=== PATIENT | female | born 1995 | race Caucasian/White ===

== ENCOUNTER 2016-12-06 18:04 | Emergency (ER) | payer MEDICAID ==
[2016-12-06 18:54] VITALS: BP 133/69
--- NOTE | 2016-12-06 20:34 | ERNOTE ---
Upper Extremity HPI - Narrative Date of Service: 12/06/16 - General Time Seen by Provider: 12/06/16 20:05 Source: patient - Immun/Allergies/Home Medications Immunizations: IMMUNIZATION HX Immunizations Up to Date No History of Influenza Vaccine No Hx Pneumococcal Vaccination No Allergies/Adverse Reactions: Allergies Allergy/AdvReac Type Severity Reaction Status Date / Time azithromycin [From Zithromax] AdvReac Verified 09/20/16 18:15 Home Medications: HOME MEDICATIONS Albuterol Sulfate [Albuterol Sulfate 0.63 MG/3ML] 0.63 mg IH Q4H PRN 09/20/16 [ Last Taken Unknown] Albuterol Sulfate [Proventil Hfa] 1 puff IH Q4H PRN 09/20/16 [Last Taken Unknown ] Ibuprofen [Motrin] 600 mg PO TID PRN #30 tab 12/06/16 [Last Taken Unknown] Medroxyprogesterone Acetate [Depo-Provera] 400 mg IM 12/06/16 [Last Taken Unknown] - History of Present Illness Narrative: pain in left handed, she reports not trauma but has been texting alot and now has pain in the medial aspect of her left forearm. - Patient's Past Medical History Patient History - Medical: No pertinent hx, Other Patient History - Cardiac/Respiratory: Asthma Patient History - Cancer: No Hx of Cancer Patient History - Surgical Procedures: No surgical history Patient History - Other: None - Social History Living Situations: home Abuse History: No History of abuse Psych History: No pertinent hx Smoking Status: Current every day smoker Have you smoked in the past 12 months: Yes Do you dip or chew tobacco: No Patient requests Smoking Cessation Consult: No Initiate information on Smoking Cessation: No Alcohol Use: none Drug Use: none - Immunizations Immunizations Up to Date: No Hx Pneumococcal Vaccination: No History of Influenza Vaccine: No ED Progress - Vital Signs Vital Signs: Vital Signs 12/06/16 18:46 Temperature 36.2 C L Pulse Rate 58 L Respiratory 16 Rate Blood Pressure 133/69 O2 Sat by Pulse 99 Oximetry - Progress/Reassessment Chief Complaint: Upper Extremity Injury/Problem Departure Clinical Impression: Muscle strain - Departure Disposition: Home self-care Condition: Good Instructions: Tennis Elbow With Rehab[facility] Prescriptions: Ibuprofen [Motrin] 600 mg PO TID PRN #30 tab PRN Reason: Pain
[2016-12-06] MEDS ORDERED: IBUPROFEN 600 MG TABLET PO ONE (20:38)
[2016-12-06] MEDS ORDERED: IBUPROFEN 600 MG TABLET ONE (20:51)
== END 2016-12-06 21:03 | disposition home or self-care (01) ==
LOC: ER 18:04
DX: S46.912A Strain of unspecified muscle, fascia and tendon at shoulder and upper arm level, left arm, initial encounter (principal); F17.210 Nicotine dependence, cigarettes, uncomplicated; X58.XXXA Exposure to other specified factors, initial encounter

== ENCOUNTER 2017-04-12 20:53 | Emergency (ER) | payer MEDICAID ==
[2017-04-12] MEDS ORDERED: CLINDAMYCIN HCL 150 MG CAPSULE PO ONE (21:41)
[2017-04-12] MEDS ORDERED: CLINDAMYCIN HCL 150 MG CAPSULE ONE (21:43)
--- OUTSIDE RECORDS SUMMARY | 2017-04-12 21:47 | XMS REPORT | Continuity of Care Document ---
:1995 Author Organization [facility] ([facility]) Address [address] [place] [address] Phone [phone] Care Team Providers Name Role Phone Carolina Christina Primary Care Provider [phone] Source Comments This disclosure is being made pursuant to the Care Everywhere program, applicable federal and state laws, and may not contain all informaitonavailable regarding this patient.[facility] ([facility]) Active Allergies and Adverse Reactions Allergen Noted Date Severity Reactions Comments Erythromycin 09/17/2016 Rash Current Medications Prescription Sig. Disp. Refills Start Date End Date Status medroxyPROGESTERone 150 Inject 150 mg Active mg/mL injection syringe intramuscularly once. albuterol 0.63 mg/3 mL Use 0.63 mg by Active nebulizer solution inhalation every 4 hours as needed. 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 Pulse 71 09/17/2016 9:55 AM NIB INSPECTOR Temperature - - Respiratory Rate - - Height 1.626 m (5' 4") 09/17/2016 9:55 AM NIB INSPECTOR Weight 80.7 kg (177 lb 14.6 oz) 09/17/2016 9:55 AM NIB INSPECTOR Body Mass Index 30.52 09/17/2016 9:55 AM NIB INSPECTOR Oxygen Saturation - - Plan of Care Health Maintenance Due Date Last Done Comments Hepatitis B Vaccine (1 of 3 - Primary Series) 1994 HPV Vaccine (1 of 3 - Female/Unknown 3 Dose Series) 2005 Tdap Vaccine 2005 Cervical Cancer Screening 2012 Lipid Disorder Screening 2012 MMR Vaccine 2012 Td Vaccine 2012 Varicella Vaccine (1 of 2 - Adult - No Evidence of 2012 Immunity) Pneumococcal Vaccine (1 of 1 - PPSV23) 2013 Influenza Vaccine: Seasonal (#1) 06/03/2016 Results from Last 3 Months Not on file
--- OUTSIDE RECORDS SUMMARY | 2017-04-12 21:47 | XMS REPORT | Continuity of Care Document ---
:1995 Author Organization [facility] [place] [address] Care Team Providers Name Role Phone Unavailable Primary Care Provider Unavailable Source Comments This disclosure is being made pursuant to the [email or web address] program and maynot contain all information available regarding this patient.[facility] Active Allergies and Adverse Reactions Not on File Current Medications Be aware that medications may not be up to date as of this document. Alwaysverify current medications with the patient. Not on file Active Problems Not on file Social History Tobacco Use Types Packs/Day Years Used Date Never Assessed Plan of Care Health Maintenance Due Date Last Done Comments HPV Vaccine (9-26YO) (1 of 3 - Female/Unknown 3 Dose 2005 Series) Chlamydia Screening 2010 Retired-Tetanus Vaccine Adult 2013 Retired-INFLUENZA VACCINE 07/04/2015 Pap Smear 2015 Results from Last 3 Months Not on file
--- NOTE | 2017-04-12 21:54 | ERNOTE ---
Medical Problem HPI - Narrative Date of Service: 04/12/17 - General Chief Complaint: Lower Extremity Pain/ Injury Time Seen by Provider: 04/12/17 21:38 Source: patient Exam Limitations: other - limited - Immun/Allergies/Home Medications Immunizations: IMMUNIZATION HX Immunizations Up to Date No History of Influenza Vaccine No Hx Pneumococcal Vaccination No Allergies/Adverse Reactions: Allergies azithromycin [From Zithromax] Adverse Reaction (Verified 09/20/16 18:15) Home Medications: HOME MEDICATIONS Albuterol Sulfate [Albuterol Sulfate 0.63 MG/3ML] 0.63 mg IH Q4H PRN 09/20/16 [ Last Taken Unknown] Albuterol Sulfate [Proventil Hfa] 1 puff IH Q4H PRN 09/20/16 [Last Taken Unknown ] Ibuprofen [Motrin] 600 mg PO TID PRN #30 tab 12/06/16 [Last Taken Unknown] Medroxyprogesterone Acetate [Depo-Provera] 400 mg IM 12/06/16 [Last Taken Unknown] - History of Present History Narrative: Noticed a sore area in the upper inner right thigh. Also now red. No drainage but has gotten tender to touch. Review of Systems - Review of Systems Constitutional: Present: no symptoms reported ENT: Present: no symptoms reported Respiratory: Present: no symptoms reported Cardiology: Present: no symptoms reported Musculoskeletal: Present: no symptoms reported - Patient's Past Medical History Patient History - Medical: No pertinent hx, Other Patient History - Cardiac/Respiratory: Asthma Patient History - Cancer: No Hx of Cancer Patient History - Surgical Procedures: No surgical history Patient History - Other: None - Social History Living Situations: home Abuse History: No History of abuse Psych History: No pertinent hx Smoking Status: Current every day smoker Patient requests Smoking Cessation Consult: No Initiate information on Smoking Cessation: No Alcohol Use: none Drug Use: none - Immunizations Immunizations Up to Date: No Hx Pneumococcal Vaccination: No History of Influenza Vaccine: No Physical Exam - Physical Exam General Appearance: Present: wd/wn, alert, no apparent distress Neck: Present: normal inspection Respiratory: Present: no respiratory distress Cardiovascular/Chest: Present: regular rate, rhythm Gastrointestinal/Abdominal: Present: nontender, soft Extremity Exam: Present: other - Right inner upper thigh with red, raised area that is tender to touch but indurated and non-fluculant. ED Progress - Vital Signs Vital Signs: Vital Signs 04/12/17 21:03 Temperature 36.7 C Pulse Rate 61 Respiratory 18 Rate Blood Pressure 142/76 O2 Sat by Pulse 97 Oximetry - Progress/Reassessment Chief Complaint: General Assessment Plan - Plan Plan: Clindamycin Hot compressed Alternate tylenol with ibuprofen every 3 hours. Follow up with PCP on Friday to consider I&D Departure - Departure Clinical Impression: Carbuncle and furuncle of lower extremity Disposition: Home self-care Condition: Good Instructions: Cellulitis, Adult, [id number] Additional Instructions: take clindamycin as directed Use hot, moist compress on area Use tylenol 650 mg alternating with ibuprofen 600 mg every 3 hours Follow up with PCP on Friday for consideration of drainage. Referrals: Carolina Christina FNP [Primary Care Provider] -
[2017-04-12 22:21] VITALS: BP 128/76
== END 2017-04-12 22:00 | disposition home or self-care (01) ==
LOC: ER 20:53
DX: L02.435 Carbuncle of right lower limb (principal)

== ENCOUNTER 2017-07-28 17:19 | Emergency (ER) | payer MEDICAID ==
[2017-07-28 17:43] VITALS: BP 132/72
--- NOTE | 2017-07-28 18:26 | ERNOTE ---
Date of Service: 07/28/17 Time Seen by Provider: 07/28/17 18:22 Stated Complaint: COUGH, SINUS DRAINAGE, SORE THROAT Presenting Symptoms:: cough, sore throat, other - nasal congestion Source: patient Exam Limitations: no limitations Immunizations: IMMUNIZATION HX Immunizations Up to Date No History of Influenza Vaccine No Hx Pneumococcal Vaccination No Allergies/Adverse Reactions: Allergies azithromycin [From Zithromax] Adverse Reaction (Verified 09/20/16 18:15) Home Medications: HOME MEDICATIONS Albuterol Sulfate [Proventil Hfa] 1 puff IH Q4H PRN 09/20/16 [Last Taken Unknown ] Ibuprofen [Motrin] 600 mg PO TID PRN #30 tab 12/06/16 [Last Taken Unknown] Medroxyprogesterone Acetate [Depo-Provera] 400 mg IM 12/06/16 [Last Taken Unknown] Albuterol Sulfate [Albuterol Sulfate 0.63 MG/3ML] 2.5 mg IH Q4H PRN #50 vial.neb 07/28/17 [Last Taken Unknown] - Pain Score Pain Score #1 Pain Score: 0 - History of Present Ilness Narrative: 21yo, F, presents to ER with c/o URI symptoms. Nasal congestion, sore throat, harsh cough x2 days. She notes to be feeling worse today, with wheezing and tightness with breathing. Date (Duration): 07/27/17 Timing: getting worse Modifying Factors - Improves: Reports: nothing Modifying Factors - Worsens: Reports: nothing Associated Symptoms: Reports: cough, shortness of breath, wheezing, nasal congestion, nasal drainage, earache, headache, sore throat. Denies: lightheadedness Review of Systems - Review of Systems Constitutional: Present: fever - subjective , fatigue. Absent: chills EYE: Absent: eye pain ENT: Present: ear pain, nose congestion, nasal drainage, sore throat Respiratory: Present: shortness of breath, cough, wheezing Cardiology: Absent: palpitations Gastrointestinal/Abdominal: Absent: nausea, vomiting Skin: Absent: rash - Patient's Past Medical History Patient History - Medical: No pertinent hx, Other Patient History - Cardiac/Respiratory: Asthma Patient History - Cancer: No Hx of Cancer Patient History - Surgical Procedures: No surgical history Patient History - Other: None LMP (females 10-50): unknown - Social History Living Situations: home Abuse History: No History of abuse Psych History: No pertinent hx Smoking Status: Current every day smoker Have you smoked in the past 12 months: Yes Do you dip or chew tobacco: No Alcohol Use: none Drug Use: none - Immunizations Immunizations Up to Date: No Hx Pneumococcal Vaccination: No History of Influenza Vaccine: No Physical Exam - Physical Exam General Appearance: Present: wd/wn, alert, no apparent distress Ears, Nose, Throat: Present: abnormal TM (R) - air fluid level to R. Tm, no erythema, nasal congestion - and inflammation neida, pharyngeal erythema - moderate Neck: Present: normal inspection, nontender Respiratory: Present: no respiratory distress, no accessory muscle use, wheezing - mild scattered expiratory wheezes. Absent: rales, rhonchi Cardiovascular/Chest: Present: regular rate, rhythm, no murmur Neurological Exam: Present: alert, oriented Skin Exam: Present: normal color, warm/dry ED Progress - Date and Time Seen: Date and Time: 07/28/17 19:28 Pt reports some improvement with tx. Some mild scattered wheezing post tx. No rales, no rhonchi. Reviewed dc instructions and POC - Vital Signs Patient's Vital Signs:: I have reviewed the patient's vital signs. Vital Signs: Vital Signs 07/28/17 17:38 Temperature 36.9 C Pulse Rate 68 Respiratory 16 Rate Blood Pressure 132/72 O2 Sat by Pulse 98 Oximetry - Progress/Reassessment Chief Complaint: Upper Respiratory Symptoms Departure Clinical Impression: Bronchitis URI (upper respiratory infection) Qualifiers: URI type: unspecified viral URI Qualified Code(s): J06.9 - Acute upper respiratory infection, unspecified - Departure Disposition: Home self-care Condition: Good Instructions: Upper Respiratory Infection, Adult, [id number], Acute Bronchitis Additional Instructions: May use OTC cold medications to help with congestion Nasal rinses as needed for congestion Resume use of nebulizer treatments to help with cough and wheezing Salt water gargles to help with sore throat Follow up with your doctor if symptoms worsen or do not improve Referrals: Carolina Christina FNP [Primary Care Provider] - Prescriptions: Albuterol Sulfate [Albuterol Sulfate 0.63 MG/3ML] 2.5 mg IH Q4H PRN #50 vial.neb PRN Reason: Wheezing
[2017-07-28] MEDS ORDERED: ALBUTEROL SULFATE 2.5 MG/0.5 ML VIAL.NEB IH ONE ×2 (18:29→19:04)
[2017-07-28] MEDS ORDERED: DEXAMETHASONE SOD PHOSPHATE 10 MG/ML VIAL PO ONE (18:29)
== END 2017-07-28 19:31 | disposition home or self-care (01) ==
LOC: ER 17:19
DX: J40 Bronchitis, not specified as acute or chronic (principal); J06.9 Acute upper respiratory infection, unspecified; F17.200 Nicotine dependence, unspecified, uncomplicated